=== PATIENT | male | born 1965 | race Asian ===

== ENCOUNTER 2017-09-16 22:19 | Inpatient (IN) | payer MEDICAID, OTHER ==
[2017-09-16 23:01] LABS: ADD MAN DIFF? NO
[2017-09-16 23:03] LABS: WHITE BLOOD COUNT 18.3 10^3/ul (4.8-10.8)
[2017-09-16 23:03] LABS: BASOPHILS % 0.2 % (0.0-2.0); HEMATOCRIT 39.9 % (42.0-52.0); HEMOGLOBIN 13.8 g/dl (14.0-18.0); LYMPHOCYTES # 0.8 10^3/ul (0.8-2.9); LYMPHOCYTES % 4.3 % (15.0-51.0); MEAN CORPUSCULAR HEMOGLOBIN 32.6 pg (29.0-33.0); MEAN CORPUSCULAR HGB CONC 34.6 g/dl (32.0-37.0); MEAN CORPUSCULAR VOLUME 94.3 fl (82.0-101.0); MEAN PLATELET VOLUME 9.7 fl (7.4-10.4); MONOCYTE # 1.1 10^3/ul (0.3-0.9); MONOCYTES % 6.1 % (0.0-11.0); NEUTROPHIL # 16.3 10^3/ul (1.6-7.5); PLATELET COUNT 297 10^3/UL (140-415); RED BLOOD COUNT 4.23 10^6/ul (4.70-6.10)
[2017-09-16] MEDS: ONDANSETRON 4 MG INJ IV (23:05)
[2017-09-16] MEDS: ACETAMINOPHEN 500 MG TAB PO (23:06)
[2017-09-16] MEDS: HYDROmorphONE 1 MG/ML SYG IV (23:06)
[2017-09-16 23:22] LABS: ADD UMIC YES; ALANINE AMINOTRANSFERASE 47 IU/L (13-69); ALBUMIN 4.5 g/dl (3.3-4.9); ALBUMIN/GLOBULIN RATIO 1.55; ALKALINE PHOSPHATASE 70 IU/L (42-121); ANION GAP 15 (8-16); ASPARTATE AMINO TRANSFERASE 23 IU/L (15-46); BILIRUBIN,INDIRECT 0.9 mg/dl (0-1.1); BILIRUBIN,TOTAL 0.9 mg/dl (0.2-1.3); BLOOD UREA NITROGEN 19 mg/dl (7-20); CALCIUM 8.9 mg/dl (8.4-10.2); CARBON DIOXIDE 25 mmol/L (21-31); CHLORIDE 99 mmol/L (97-110); CREATININE 1.08 mg/dl (0.61-1.24); GLUCOSE 150 mg/dl (70-220); LIPASE 48 U/L (23-300); POTASSIUM 3.5 mmol/L (3.5-5.1); SODIUM 135 mmol/L (135-144); TOTAL PROTEIN 7.4 g/dl (6.1-8.1); UR ASCORBIC ACID NEGATIVE (NEGATIVE); UR BILIRUBIN (Dip) NEGATIVE (NEGATIVE); UR BLOOD (Dip) 1+ mg/dL (NEGATIVE); UR CLARITY CLEAR (CLEAR); UR COLOR YELLOW (YELLOW); UR GLUCOSE (Dip) NEGATIVE (NEGATIVE); UR KETONES (Dip) NEGATIVE (NEGATIVE); UR LEUKOCYTE ESTERASE (Dip) NEGATIVE Leu/ul (NEGATIVE); UR NITRITE (Dip) NEGATIVE (NEGATIVE); UR RBC 1 /HPF (0-5); UR SPECIFIC GRAVITY (Dip) 1.015 (1.003-1.030); UR TOTAL PROTEIN (Dip) NEGATIVE (NEGATIVE); UR UROBILINOGEN (Dip) NEGATIVE (NEGATIVE); UR WBC 2 /HPF (0-5)
[2017-09-16] MEDS: IOHEXOL 300MG/ML 150 ML BTL (23:45)
[2017-09-16] MEDS: SOD CHLORIDE 0.9% 100 ML (23:45)
[2017-09-17] MEDS ORDERED: ACETAMINOPHEN 325 MG TAB PO (00:30)
[2017-09-17] MEDS ORDERED: NICOTINE POLACRILEX 2 MG GUM BUCCAL (01:00)
[2017-09-17] MEDS ORDERED: ONDANSETRON 4 MG TAB PO (01:00)
[2017-09-17] MEDS ORDERED: NACL 0.9% 3 ML SYG IV (01:00)
[2017-09-17] MEDS ORDERED: morphine 2 MG INJ IV (01:00)
[2017-09-17] MEDS: ERTAPENEM SODIUM 1 GM in SOD CHLORIDE 0.9% 100 ML IVPB (01:04)
[2017-09-17 01:28] LABS: LACTIC ACID 0.9 mmol/L (0.5-2.0)
[2017-09-17] MEDS: SOD CHLORIDE 0.9% 1,000 ML IV (02:00)
[2017-09-17] MEDS: ONDANSETRON 4 MG INJ IV ×2 (02:02→11:55)
[2017-09-17] MEDS: KETOROLAC 30 MG INJ IM (02:41)
[2017-09-17] MEDS: PIPER-TAZO 3.375 GM IV (PMX) 50 ML IVPB ×3 (05:46→17:20)
[2017-09-17 06:14] LABS: ADD MAN DIFF? NO
[2017-09-17 06:39] LABS: WHITE BLOOD COUNT 16.9 10^3/ul (4.8-10.8)
[2017-09-17 06:39] LABS: BASOPHILS % 0.2 % (0.0-2.0); EOSINOPHILS % 0.1 % (0.0-7.0); HEMATOCRIT 39.4 % (42.0-52.0); LYMPHOCYTES # 1.5 10^3/ul (0.8-2.9); LYMPHOCYTES % 8.8 % (15.0-51.0); MEAN CORPUSCULAR HEMOGLOBIN 31.8 pg (29.0-33.0); MEAN CORPUSCULAR VOLUME 96.3 fl (82.0-101.0); MEAN PLATELET VOLUME 10.2 fl (7.4-10.4); MONOCYTE # 0.7 10^3/ul (0.3-0.9); NEUTROPHIL # 14.5 10^3/ul (1.6-7.5); NEUTROPHILS % 86.1 % (39.0-77.0); PLATELET COUNT 300 10^3/UL (140-415); RED BLOOD COUNT 4.09 10^6/ul (4.70-6.10); RED CELL DISTRIBUTION WIDTH 12.4 % (11.5-14.5)
[2017-09-17 06:47] LABS: ANION GAP 13 (8-16)
[2017-09-17 06:55] LABS: BLOOD UREA NITROGEN 19 mg/dl (7-20); CALCIUM 8.8 mg/dl (8.4-10.2); CARBON DIOXIDE 28 mmol/L (21-31); CHLORIDE 101 mmol/L (97-110); CREATININE 1.15 mg/dl (0.61-1.24); GLUCOSE 116 mg/dl (70-220); POTASSIUM 4.2 mmol/L (3.5-5.1); SODIUM 138 mmol/L (135-144)
[2017-09-17] MEDS: ENOXAPARIN 40 MG/0.4 ML SYG SC (08:36)
[2017-09-17] MEDS: LACTATED RINGER'S 1,000 ML IV (08:40)
[2017-09-17] MEDS: KETOROLAC 30 MG INJ IV (08:40)
[2017-09-17] MEDS ORDERED: FENTAnyl 50 MCG/ML VIAL (10:08)
[2017-09-17] MEDS ORDERED: ROPIVACAINE 0.5 % 30 ML VIAL (10:09)
[2017-09-17] MEDS ORDERED: LIDOCAINE 100 MG SYRINGE (10:47)
[2017-09-17] MEDS ORDERED: PROPOFOL 20 ML (10:47)
[2017-09-17] MEDS ORDERED: SUCCINYLCHOLINE CHLORIDE 100 MG/5 ML SYG IV (10:47)
[2017-09-17] MEDS ORDERED: CEFAZOLIN 1 GM INJ (10:47)
[2017-09-17] MEDS ORDERED: ROCURONIUM 50 MG INJ (10:47)
[2017-09-17] MEDS ORDERED: SUGAMMADEX SODIUM 200 MG/2 ML VIAL IV (10:47)
[2017-09-17] MEDS ORDERED: HYDROmorphONE 1 MG/5 ML IV SYRINGE IV ×3 (11:50→12:00)
[2017-09-17] MEDS: HYDROmorphONE 1 MG/5 ML IV SYRINGE IV (11:56)
[2017-09-17] MEDS ORDERED: METOCLOPRAMIDE 10 MG INJ IV (12:00)
[2017-09-17] MEDS ORDERED: FENTAnyl 50 MCG/ML VIAL IV ×3 (12:00)
[2017-09-17] MEDS ORDERED: ALBUTEROL 0.083% (NEB) 2.5 MG/3 ML AMP HHN (12:00)
[2017-09-17] MEDS ORDERED: MEPERIDINE 25 MG INJ IV (12:00)
[2017-09-17] MEDS ORDERED: DIPHENHYDRAMINE 50 MG INJ IV (12:00)
[2017-09-17] MEDS ORDERED: ONDANSETRON 4 MG INJ IV (12:00)
[2017-09-17] MEDS: D5W-0.45 NACL + KCL 20 MEQ 1,000 ML IV (13:32)
[2017-09-17] MEDS: AMPICILLIN/SULB 3 GM/NS (PMX) 100 ML IVPB ×2 (14:53→18:03)
[2017-09-17] MEDS: TAMSULOSIN (SR) 0.4 MG CAP PO (20:45)
[2017-09-18] MEDS: AMPICILLIN/SULB 3 GM/NS (PMX) 100 ML IVPB ×2 (00:04→05:15)
[2017-09-18] MEDS: PIPER-TAZO 3.375 GM IV (PMX) 50 ML IVPB ×4 (00:38→17:48)
[2017-09-18] MEDS: KETOROLAC 30 MG INJ IV ×2 (03:28→19:26)
[2017-09-18] MEDS: D5W-0.45 NACL + KCL 20 MEQ 1,000 ML IV ×3 (03:35→15:36)
[2017-09-18 05:37] LABS: ADD MAN DIFF? NO
[2017-09-18 05:42] LABS: BASOPHIL # 0.1 10^3/ul (0.0-0.1); BASOPHILS % 0.4 % (0.0-2.0); EOSINOPHILS % 0.3 % (0.0-7.0); HEMOGLOBIN 11.5 g/dl (14.0-18.0); LYMPHOCYTES # 1.2 10^3/ul (0.8-2.9); MEAN CORPUSCULAR HEMOGLOBIN 32.2 pg (29.0-33.0); MEAN CORPUSCULAR HGB CONC 33.8 g/dl (32.0-37.0); MEAN CORPUSCULAR VOLUME 95.2 fl (82.0-101.0); MEAN PLATELET VOLUME 10.2 fl (7.4-10.4); MONOCYTE # 0.5 10^3/ul (0.3-0.9); MONOCYTES % 3.6 % (0.0-11.0); NEUTROPHIL # 11.6 10^3/ul (1.6-7.5); NEUTROPHILS % 86.3 % (39.0-77.0); PLATELET COUNT 241 10^3/UL (140-415); RED BLOOD COUNT 3.57 10^6/ul (4.70-6.10); RED CELL DISTRIBUTION WIDTH 12.6 % (11.5-14.5)
[2017-09-18 05:42] LABS: WHITE BLOOD COUNT 13.4 10^3/ul (4.8-10.8)
[2017-09-18 06:21] LABS: ANION GAP 8 (8-16); BLOOD UREA NITROGEN 15 mg/dl (7-20); CALCIUM 7.7 mg/dl (8.4-10.2); CARBON DIOXIDE 25 mmol/L (21-31); CHLORIDE 106 mmol/L (97-110); CREATININE 1.24 mg/dl (0.61-1.24); GLUCOSE 136 mg/dl (70-220); POTASSIUM 3.4 mmol/L (3.5-5.1); SODIUM 136 mmol/L (135-144)
[2017-09-18] MEDS: ENOXAPARIN 40 MG/0.4 ML SYG SC (08:20)
[2017-09-18] MEDS: TAMSULOSIN (SR) 0.4 MG CAP PO ×2 (20:49→21:07)
[2017-09-19] MEDS: PIPER-TAZO 3.375 GM IV (PMX) 50 ML IVPB ×2 (00:39→05:17)
[2017-09-19] MEDS: D5W-0.45 NACL + KCL 20 MEQ 1,000 ML IV (03:31)
[2017-09-19] MEDS: IBUPROFEN 600 MG TAB PO (05:24)
[2017-09-19 05:43] LABS: ADD MAN DIFF? NO
[2017-09-19 05:57] LABS: WHITE BLOOD COUNT 9.9 10^3/ul (4.8-10.8)
[2017-09-19 05:57] LABS: BASOPHILS % 0.3 % (0.0-2.0); EOSINOPHILS # 0.3 10^3/ul (0.0-0.5); EOSINOPHILS % 3.1 % (0.0-7.0); HEMATOCRIT 35.5 % (42.0-52.0); HEMOGLOBIN 11.9 g/dl (14.0-18.0); LYMPHOCYTES % 10.5 % (15.0-51.0); MEAN CORPUSCULAR HEMOGLOBIN 31.7 pg (29.0-33.0); MEAN CORPUSCULAR HGB CONC 33.5 g/dl (32.0-37.0); MEAN CORPUSCULAR VOLUME 94.7 fl (82.0-101.0); MEAN PLATELET VOLUME 10.3 fl (7.4-10.4); MONOCYTE # 0.4 10^3/ul (0.3-0.9); NEUTROPHIL # 8.1 10^3/ul (1.6-7.5); NEUTROPHILS % 81.8 % (39.0-77.0); PLATELET COUNT 238 10^3/UL (140-415); RED BLOOD COUNT 3.75 10^6/ul (4.70-6.10); RED CELL DISTRIBUTION WIDTH 12.6 % (11.5-14.5)
[2017-09-19 06:34] LABS: ANION GAP 10 (8-16); BLOOD UREA NITROGEN 10 mg/dl (7-20); CALCIUM 7.9 mg/dl (8.4-10.2); CARBON DIOXIDE 24 mmol/L (21-31); CHLORIDE 109 mmol/L (97-110); CREATININE 1.04 mg/dl (0.61-1.24); GLUCOSE 128 mg/dl (70-220); MAGNESIUM 2.2 mg/dl (1.7-2.5); POTASSIUM 3.6 mmol/L (3.5-5.1); SODIUM 139 mmol/L (135-144)
[2017-09-19] MEDS: ENOXAPARIN 40 MG/0.4 ML SYG SC (08:52)
== END 2017-09-19 12:25 | disposition home or self-care (01) | DRG 853 ==
LOC: E/R 22:19 → MS2 09-17 00:25
PROC: 0DTJ4ZZ Resection of Appendix, Percutaneous Endoscopic Approach (ICD-10-PCS; principal; 2017-09-17 10:00)
DX: A41.9 Sepsis, unspecified organism (principal); K35.2 Acute appendicitis with generalized peritonitis; N13.2 Hydronephrosis with renal and ureteral calculous obstruction; F17.210 Nicotine dependence, cigarettes, uncomplicated
CPT/HCPCS: 36415; 74018; 74177; 80048; 80053; 81001; 83605; 83690; 83735; 85025; 87040; 88304; 96374; 96375; 99285-25